=== PATIENT | male | born 1975 | race Caucasian/White ===

== ENCOUNTER 2020-03-14 12:20 | Emergency (ER) | payer BC ==
--- NOTE | 2020-03-14 12:36 | ERPHSYRPT ---
- History of Present Illness Time Seen by Provider: 03/14/20 12:35 Historian: patient Exam Limitations: no limitations Physician History: This is a morbidly obese 45-year-old white male who presents with sudden onset of right flank pain that radiates down into his right scrotum. He is never had anything like this in the past. His pain came on suddenly approximately 1/2- hour prior to arrival. The pain is sharp and severe. He is mildly nauseated no vomiting no diarrhea. Onset was after he ate earlier. Timing/Duration: today Activities at Onset: none Quality: sharpness, stabbing Abdominal Pain Onset Location: flank (Right flank) Pain Radiation: groin (Right groin) Severity of Pain-Max: moderate Severity of Pain-Current: moderate Modifying Factors: Improves With: nothing Associated Symptoms: nausea, testicular pain (Pain radiates from his right flank down into his right groin/scrotum/testicle), No chest pain, No diarrhea, No vomiting Previous symptoms: no prior history Allergies/Adverse Reactions: trimethoprim [From Bactrim] Allergy (Severe, Verified 03/14/20 12:37) states "eyes get blood shot" sulfamethoxazole [From Bactrim] Allergy (Verified 03/14/20 12:37) Home Medications: Benazepril HCl [Lotensin] 20 mg PO DAILY 03/14/20 [History] Cyclobenzaprine HCl 10 mg [Cyclobenzaprine 10 MG] 10 mg PO DAILY 03/14/20 [History] Sertraline HCl 50 mg [Zoloft 50 mg Tablet] 50 mg PO DAILY 03/14/20 [History] Hx Influenza Vaccination/Date Given: No Hx Pneumococcal Vaccination/Date Given: No Travel Risk - International Travel Have you traveled outside of the country in past 3 weeks: No Have you or anyone close to you been diagnosed with or: No Do your reside in a community with a known COVID-19 case?: Yes If Yes where:: [facility] - Coronavirus Screening Has patient experienced Coronavirus symptoms: No - Review of Systems Constitutional: No Symptoms Eyes: No Symptoms Ears, Nose, & Throat: No Symptoms Respiratory: No Symptoms Cardiac: No Symptoms Abdominal/Gastrointestinal: Nausea, No Abdominal Pain, No Vomiting, No Diarrhea , No Appetite Changes Genitourinary Symptoms: Flank Pain (Right flank pain), Testicle Pain (Right flank pain radiates into the right testicle) Musculoskeletal: No Symptoms Skin: No Symptoms Neurological: No Symptoms Psychological: No Symptoms Endocrine: No Symptoms Hematologic/Lymphatic: No Symptoms Immunological/Allergic: No Symptoms All Other Systems: Reviewed and Negative - Past Medical History Pertinent Past Medical History: Yes Neurological History: No Pertinent History ENT History: No Pertinent History Cardiac History: No Pertinent History Respiratory History: No Pertinent History Endocrine Medical History: No Pertinent History Musculoskeletal History: No Pertinent History GI Medical History: No Pertinent History History: No Pertinent History Psycho-Social History: No Pertinent History Male Reproductive Disorders: No Pertinent History Other Medical History: heartburn on occasion and rectal bleeding 6 months ago - Past Surgical History Past Surgical History: Yes (IVS colonoscopy) Neuro Surgical History: No Pertinent History Cardiac: No Pertinent History Respiratory: No Pertinent History Gastrointestinal: No Pertinent History Genitourinary: No Pertinent History Musculoskeletal: No Pertinent History Male Surgical History: No Pertinent History - Social History Smoking Status: Never smoker How long have you smoked: 5 Exposure to second hand smoke: No Drug Use: none - Nursing Vital Signs Nursing Vital Signs: Initial Vital Signs Temperature 97.7 F 03/14/20 12:23 Pulse Rate 87 03/14/20 12:23 Blood Pressure 164/100 03/14/20 12:23 O2 Sat by Pulse Oximetry 98 03/14/20 12:23 Pain Scale Pain Intensity 7 Ordered Tests: Active Orders 24 hr Category Date Time Status IV Insertion STAT Care 03/14/20 12:39 Active ABDOMEN AND PELVIS W/0 CONTRAS [CT] Stat Exams 03/14/20 12:40 Completed AMYLASE Stat Lab 03/14/20 12:50 Completed CBC W DIFF Stat Lab 03/14/20 12:50 Completed CMP Stat Lab 03/14/20 12:50 Completed LIPASE Stat Lab 03/14/20 12:50 Completed Lactic Acid Stat Lab 03/14/20 13:01 Completed UA W/RFX UR CULTURE Stat Lab 03/14/20 12:50 Completed Medication Summary Discontinued Medications Generic Name Dose Route Start Last Admin Trade Name Freq PRN Reason Stop Dose Admin Hydromorphone HCl Confirm 03/14/20 12:38 Hydromorphone 1 Mg/Ml Ampule Administered 03/14/20 12:39 Dose 1 mg .ROUTE .STK-MED ONE Hydromorphone HCl 1 mg 03/14/20 12:39 03/14/20 12:47 Hydromorphone 1 Mg/Ml Ampule IV 03/14/20 12:40 1 mg STAT ONE Administration Hydromorphone HCl 1 mg 03/14/20 13:26 03/14/20 13:30 Hydromorphone 1 Mg/Ml Ampule IV 03/14/20 13:27 1 mg STAT ONE Administration Hydromorphone HCl Confirm 03/14/20 13:29 Hydromorphone 1 Mg/Ml Ampule Administered 03/14/20 13:30 Dose 1 mg .ROUTE .STK-MED ONE Sodium Chloride Confirm 03/14/20 12:38 Sodium Chloride 0.9% 1000 Ml Administered 03/14/20 12:39 Dose 1,000 mls @ ud .ROUTE .STK-MED ONE Sodium Chloride 1,000 mls @ 999 mls/hr 03/14/20 12:39 03/14/20 13:48 Sodium Chloride 0.9% 1000 Ml IV 03/14/20 13:39 Infused .Q1H1M STA Infusion Ketorolac Tromethamine Confirm 03/14/20 12:38 Toradol 30 Mg Injection Administered 03/14/20 12:39 Dose 30 mg .ROUTE .STK-MED ONE Ketorolac Tromethamine 30 mg 03/14/20 12:39 03/14/20 12:46 Toradol 30 Mg Injection IV 03/14/20 12:40 30 mg STAT ONE Administration Ondansetron HCl Confirm 03/14/20 12:38 Zofran 4 Mg/2 Ml Vial Administered 03/14/20 12:39 Dose 4 mg .ROUTE .STK-MED ONE Ondansetron HCl 4 mg 03/14/20 12:39 03/14/20 12:47 Zofran 4 Mg/2 Ml Vial IV 03/14/20 12:40 4 mg STAT ONE Administration Lab/Rad Data: Laboratory Result Diagrams 03/14/20 12:50 03/14/20 12:50 Laboratory Results 03/14/20 03/14/20 03/14/20 Range/Units 13:01 12:50 12:50 WBC (4.0-10.5) K/mm3 RBC (4.1-5.6) M/mm3 Hgb (12.5-18.0) gm/dl Hct (42-50) % MCV (78-100) fl MCH (26-32) pg MCHC (32-36) g/dl RDW (11.5-14.0) % Plt Count (150-450) K/mm3 MPV (7.5-11.0) fl Gran % (36.0-66.0) % Eos # (Auto) (0-0.5) Absolute Lymphs (auto) (1.0-4.6) Absolute Monos (auto) (0.0-1.3) Lymphocytes % (24.0-44.0) % Monocytes % (0.0-12.0) % Eosinophils % (0.00-5.0) % Basophils % (0.0-0.4) % Absolute Granulocytes (1.4-6.9) Basophils # (0-0.4) Sodium 141 (137-145) mmol/L Potassium 3.9 (3.5-5.1) mmol/L Chloride 106 (98-107) mmol/L Carbon Dioxide 26 (22-30) mmol/L Anion Gap 12.5 (5-15) MEQ/L BUN 13 (9-20) mg/dL Creatinine 0.90 (0.66-1.25) mg/dL Estimated GFR > 60.0 ML/MIN Glucose 119 H (74-106) mg/dL Lactic Acid 1.9 (0.4-2.0) Calcium 9.7 (8.4-10.2) mg/dL Total Bilirubin 0.50 (0.2-1.3) mg/dL AST 24 (17-59) U/L ALT 31 (0-50) U/L Alkaline Phosphatase 89 (38-126) U/L Serum Total Protein 8.1 (6.3-8.2) g/dL Albumin 4.5 (3.5-5.0) g/dL Amylase 46 (30-110) U/L Lipase 61 (23-300) U/L Urine Color YELLOW (YELLOW) Urine Appearance SLIGHTLY CLOUDY (CLEAR) Urine pH 5.0 (5-6) Ur Specific [place] 1.023 (1.005-1.025) Urine Protein NEGATIVE (Negative) Urine Ketones NEGATIVE (NEGATIVE) Urine Blood LARGE (0-5) Saul/ul Urine Nitrite NEGATIVE (NEGATIVE) Urine Bilirubin NEGATIVE (NEGATIVE) Urine Urobilinogen 2 (0-1) mg/dL Ur Leukocyte Esterase NEGATIVE (NEGATIVE) Urine WBC (Auto) NONE (0-5) /HPF Urine RBC (Auto) 51-100 (0-2) /HPF U Epithel Cells (Auto) NONE (FEW) /HPF Urine Bacteria (Auto) NONE (NEGATIVE) /HPF Calcium Oxalate Crystal 6-10 (NEGATIVE) /HPF Urine Mucus (Auto) SLIGHT (NEGATIVE) /HPF Urine Culture Reflexed NO (NO) Urine Glucose NEGATIVE (NEGATIVE) mg/dL 03/14/20 Range/Units 12:50 WBC 9.6 (4.0-10.5) K/mm3 RBC 5.37 (4.1-5.6) M/mm3 Hgb 15.7 (12.5-18.0) gm/dl Hct 47.4 (42-50) % MCV 88.3 (78-100) fl MCH 29.2 (26-32) pg MCHC 33.1 (32-36) g/dl RDW 13.9 (11.5-14.0) % Plt Count 217 (150-450) K/mm3 MPV 10.7 (7.5-11.0) fl Gran % 63.8 (36.0-66.0) % Eos # (Auto) 0.16 (0-0.5) Absolute Lymphs (auto) 2.54 (1.0-4.6) Absolute Monos (auto) 0.73 (0.0-1.3) Lymphocytes % 26.6 (24.0-44.0) % Monocytes % 7.6 (0.0-12.0) % Eosinophils % 1.7 (0.00-5.0) % Basophils % 0.3 (0.0-0.4) % Absolute Granulocytes 6.10 (1.4-6.9) Basophils # 0.03 (0-0.4) Sodium (137-145) mmol/L Potassium (3.5-5.1) mmol/L Chloride (98-107) mmol/L Carbon Dioxide (22-30) mmol/L Anion Gap (5-15) MEQ/L BUN (9-20) mg/dL Creatinine (0.66-1.25) mg/dL Estimated GFR ML/MIN Glucose (74-106) mg/dL Lactic Acid (0.4-2.0) Calcium (8.4-10.2) mg/dL Total Bilirubin (0.2-1.3) mg/dL AST (17-59) U/L ALT (0-50) U/L Alkaline Phosphatase (38-126) U/L Serum Total Protein (6.3-8.2) g/dL Albumin (3.5-5.0) g/dL Amylase (30-110) U/L Lipase (23-300) U/L Urine Color (YELLOW) Urine Appearance (CLEAR) Urine pH (5-6) Ur Specific [place] (1.005-1.025) Urine Protein (Negative) Urine Ketones (NEGATIVE) Urine Blood (0-5) Saul/ul Urine Nitrite (NEGATIVE) Urine Bilirubin (NEGATIVE) Urine Urobilinogen (0-1) mg/dL Ur Leukocyte Esterase (NEGATIVE) Urine WBC (Auto) (0-5) /HPF Urine RBC (Auto) (0-2) /HPF U Epithel Cells (Auto) (FEW) /HPF Urine Bacteria (Auto) (NEGATIVE) /HPF Calcium Oxalate Crystal (NEGATIVE) /HPF Urine Mucus (Auto) (NEGATIVE) /HPF Urine Culture Reflexed (NO) Urine Glucose (NEGATIVE) mg/dL - Progress Progress: improved, pain not gone completely, re-examined Progress Note: 03/14/20 14:41 The CAT scan of the abdomen and pelvis reveals a small, 2 to 3 mm, right ureteral stone at this approximately 1 cm proximal to the ureterovesicular junction. There is mild hydronephrosis but no dilatation of the right ureter. Counseled pt/family regarding: lab results, diagnosis, need for follow-up, rad results - Departure Departure Disposition: Home Clinical Impression: Right ureteral calculus Condition: Stable Critical Care Time: No Referrals: DOLLY RENNER [Primary Care Provider] - Additional Instructions: Plenty of fluids. Take ibuprofen 600 mg orally 3 times a day with food for the next 4 days. Return to the emergency department for worsening symptoms. Follow -up with your primary care physician/urologist for persistent but not worsening symptoms. Prescriptions: Hydrocodone/APAP 5/325 [[place] 5/325 mg] 1 each PO Q8H PRN PRN #10 tablet MDD 3 PRN Reason: Pain
[2020-03-14] MEDS ORDERED: Zofran 4 MG/2 ML VIAL ONE (12:38)
[2020-03-14] MEDS ORDERED: Sodium Chloride 0.9% 1000 ML 1,000 ML ONE (12:38)
[2020-03-14] MEDS ORDERED: Hydromorphone 1 mg/ml Ampule ONE ×2 (12:38→13:29)
[2020-03-14] MEDS ORDERED: TORAdol 30 mg Injection ONE (12:38)
[2020-03-14] MEDS ORDERED: Sodium Chloride 0.9% 1000 ML 1,000 ML IV STA (12:39)
[2020-03-14] MEDS ORDERED: TORAdol 30 mg Injection IV ONE (12:39)
[2020-03-14] MEDS ORDERED: Zofran 4 MG/2 ML VIAL IV ONE (12:39)
[2020-03-14] MEDS ORDERED: Hydromorphone 1 mg/ml Ampule IV ONE ×2 (12:39→13:26)
[2020-03-14 13:11] LABS: BASOPHIL % 0.3 % (0.0-0.4); Basophil (Absolute #) 0.03 (0-0.4); Eosinophil % 1.7 % (0.00-5.0); Eosinophil (Absolute #) 0.16 (0-0.5); Hematocrit 47.4 % (42-50); Hemoglobin 15.7 gm/dl (12.5-18.0); Lymphocyte (Absolute #) 2.54 (1.0-4.6); Lymphocytes % 26.6 % (24.0-44.0); Mean Cell Volume 88.3 fl (78-100); Mean Corpuscular Hemoglobin 29.2 pg (26-32); Mean Corpuscular Hgb Concent. 33.1 g/dl (32-36); Mean Platelet Volume 10.7 fl (7.5-11.0); Monocyte (Absolute #) 0.73 (0.0-1.3); Monocytes % 7.6 % (0.0-12.0); Neutrophil % 63.8 % (36.0-66.0); Platelet Count 217 K/mm3 (150-450); Red Blood Count 5.37 M/mm3 (4.1-5.6); Red Cell Distribution Width 13.9 % (11.5-14.0); White Blood Count 9.6 K/mm3 (4.0-10.5)
[2020-03-14 13:15] LABS: Appearance SLIGHTLY CLOUDY (CLEAR); Bilirubin NEGATIVE (NEGATIVE); Blood LARGE Ery/ul (0-5); Glucose NEGATIVE (NEGATIVE); Ketones NEGATIVE (NEGATIVE); Leukocyte Esterase NEGATIVE (NEGATIVE); Mucus SLIGHT /HPF (NEGATIVE); Nitrite NEGATIVE (NEGATIVE); Protein,Urine Dip NEGATIVE (Negative); RBC 51-100 /HPF (0-2); Specific Gravity 1.023 (1.005-1.025); Urobilinogen 2 mg/dL (0-1)
[2020-03-14 13:23] VITALS: PULSE 88; O2SAT 97
[2020-03-14 13:31] LABS: ALBUMIN 4.5 g/dL (3.5-5.0); ALKALINE PHOSPHATASE 89 U/L (38-126); AMYLASE 46 U/L (30-110); ANION GAP 12.5 MEQ/L (5-15); BLOOD UREA NITROGEN 13 mg/dL (9-20); CHLORIDE 106 mmol/L (98-107); Calcium 9.7 mg/dL (8.4-10.2); Carbon Dioxide 26 mmol/L (22-30); Glucose 119 mg/dL (74-106); LIPASE 61 U/L (23-300); Potassium 3.9 mmol/L (3.5-5.1); SGOT/AST 24 U/L (17-59); SGPT/ALT 31 U/L (0-50); SODIUM 141 mmol/L (137-145); Total Protein 8.1 g/dL (6.3-8.2)
--- NOTE | 2020-03-14 14:27 | XRAY ---
Exam: CT of the abdomen and pelvis without IV contrast from 03/14/2020. CTDI: 38.05 mGy Comparison: CT of the abdomen without IV contrast and CT of the abdomen and pelvis with IV contrast, both from 12/03/2011. Indication: Right-sided flank pain and lower right abdominal pain in 45-year-old male. Technique: Non-IV contrast axial images were obtained through the abdomen and pelvis. Reconstructed coronal and sagittal images were created and reviewed. Findings: The lung bases appear clear. The heart size is normal. Within the right kidney, I note a 4.3 mm in diameter nonobstructing stone within the upper pole which appears new from 12/03/2011. The right kidney measures 14.8 cm in length on the sagittal image and demonstrates some mild pyelocaliectasis. The left kidney measures 13.9 cm in length. Mild right-sided hydroureter is noted down to the level of a distal right ureteral stone measuring 2-3 mm in diameter about 1 centimeter proximal to the ureterovesical junction. See axial image #110. This is probably causing the patient's symptomatology. The left ureter appears unremarkable and reveals no ureterolith. The urinary bladder is only minimally distended. No gross urinary bladder stone is seen. The liver, spleen, pancreas, and adrenal glands appear essentially unremarkable. The gallbladder is partially distended and reveals no dense calcifications within it. No intrahepatic biliary duct distention is seen. The abdominal aorta reveals mild atherosclerotic vascular calcification within its distal aspect. No abdominal aortic aneurysm is seen. No abnormal retroperitoneal lymphadenopathy is seen. The abdomen is protuberant and reveals much intraperitoneal fat secondary to obesity. There is no free intraperitoneal air. Anterior abdominal wall appears intact. The bowel is not distended. Some scattered stool is seen within the colon. The appendix appears unremarkable. Mild diverticulosis of the sigmoid colon without evidence of acute diverticulitis is seen. I see no free intraperitoneal fluid. The seminal vesicles and prostate gland appear unremarkable. No other pelvic mass or enlarged pelvic lymph nodes are seen. A couple small calcified phleboliths are seen within the lower left hemipelvis representing no change from 12/03/2011. Some nonspecific postinflammatory lymph nodes are seen within each groin. The skeleton reveals no acute fracture or aggressive bone lesion. Mild bilateral facet joint arthropathy is seen at L5-S1. Some vertebral endplate spurring is seen within the visualized thoracolumbar spine, more prominent within the lower thoracic spine. Small Schmorl's nodes and moderate degenerative changes are seen within several lower thoracic interspaces. Impression: 1. There is a small 2-3 mm distal right ureteral stone located about 1 cm proximal to the ureterovesical junction causing mild right-sided hydroureteronephrosis. This is new from 12/03/2011. 2. Nonobstructing 4.3 mm stone within the upper pole the right kidney, also new. 3. No other acute intra-abdominal or pelvic process is seen. I note mild sigmoid colon diverticulosis without evidence of diverticulitis, obesity, and some degenerative spondylosis, more prominent within the lower thoracic spine.
[2020-03-14 14:47] VITALS: BP 149/105
== END 2020-03-14 14:54 | disposition home or self-care (01) ==
LOC: ED 12:20
DX: N20.1 Calculus of ureter (principal); N13.30 Unspecified hydronephrosis
CPT/HCPCS: 36000; 36415; 74176; 80053; 81001; 82150; 83605; 83690; 85025; 96360; 96374; 96375; 96376; 99284; J1170; J1885; J2405

== ENCOUNTER 2020-03-30 12:46 | Emergency (ER) | payer BC ==
[2020-03-30] MEDS ORDERED: Hydromorphone 1 mg/ml Ampule IV ONE (12:54)
[2020-03-30] MEDS ORDERED: TORAdol 30 mg Injection IV ONE (12:54)
[2020-03-30] MEDS ORDERED: Sodium Chloride 0.9% 1000 ML 1,000 ML IV STA (12:54)
[2020-03-30] MEDS ORDERED: Zofran 4 MG/2 ML VIAL IV ONE (12:54)
--- NOTE | 2020-03-30 13:10 | ERPHSYRPT ---
- History of Present Illness Time Seen by Provider: 03/30/20 12:50 Historian: patient Exam Limitations: no limitations Patient Subjective Stated Complaint: pt here for right sided abd pain that radiates to flank area since yesterday, he was seen 3 weeks ago and had 2 kidney stones Triage Nursing Assessment: pt alert, waked in, resp easy, skin w/d/p. abd soft, resp easy, moves all ext well Physician History: Is a 45-year-old morbidly obese white male with history of hypertension and known single right kidney stone measuring 4 mm who presents with sudden onset of right flank pain with radiation of pain to his right scrotum. It is described as sharp and severe. He said no nausea vomiting or diarrhea. Patient had similar symptoms on 03/14/2020 a CAT scan revealed right ureterolithiasis. He has passed that stone. However there was a single stone as described above present within the right kidney. This pain is similar and there was sudden onset of pain yesterday. It never really went away but got worse today and therefore he is here for further management. Patient used the prescribed [place] pain medicine which was not helping. Abdominal Pain Onset Location: flank (Right) Pain Radiation: groin (Right) Severity of Pain-Max: moderate Severity of Pain-Current: moderate Modifying Factors: Improves With: nothing Associated Symptoms: denies symptoms Previous symptoms: same symptoms as today, recently seen, recently treated Allergies/Adverse Reactions: trimethoprim [From Bactrim] Allergy (Severe, Verified 03/30/20 12:57) states "eyes get blood shot" sulfamethoxazole [From Bactrim] Allergy (Verified 03/30/20 12:57) Home Medications: Benazepril HCl [Lotensin] 20 mg PO DAILY 03/14/20 [History] Cyclobenzaprine HCl 10 mg [Cyclobenzaprine 10 MG] 10 mg PO DAILY 03/14/20 [History] Sertraline HCl 50 mg [Zoloft 50 mg Tablet] 50 mg PO DAILY 03/14/20 [History] Hx Tetanus, Diphtheria Vaccination/Date Given: No Hx Influenza Vaccination/Date Given: No Hx Pneumococcal Vaccination/Date Given: No Immunizations Up to Date: Yes Travel Risk - International Travel Have you traveled outside of the country in past 3 weeks: No Have you or anyone close to you been diagnosed with or: No Do your reside in a community with a known COVID-19 case?: Yes If Yes where:: [facility] - Coronavirus Screening Has patient experienced Coronavirus symptoms: No - Review of Systems Constitutional: No Symptoms Eyes: No Symptoms Ears, Nose, & Throat: No Symptoms Respiratory: No Symptoms Cardiac: No Symptoms Abdominal/Gastrointestinal: No Symptoms Genitourinary Symptoms: Flank Pain (Right), Other (Into the right groin and scrotum) Musculoskeletal: No Symptoms Skin: No Symptoms Neurological: No Symptoms Psychological: No Symptoms Endocrine: No Symptoms Hematologic/Lymphatic: No Symptoms Immunological/Allergic: No Symptoms All Other Systems: Reviewed and Negative - Past Medical History Pertinent Past Medical History: Yes Neurological History: No Pertinent History ENT History: No Pertinent History Cardiac History: No Pertinent History Respiratory History: No Pertinent History Endocrine Medical History: No Pertinent History Musculoskeletal History: No Pertinent History GI Medical History: No Pertinent History History: No Pertinent History Psycho-Social History: No Pertinent History Male Reproductive Disorders: No Pertinent History Other Medical History: heartburn on occasion and rectal bleeding 6 months ago - Past Surgical History Past Surgical History: Yes (IVS colonoscopy) Neuro Surgical History: No Pertinent History Cardiac: No Pertinent History Respiratory: No Pertinent History Gastrointestinal: No Pertinent History Genitourinary: No Pertinent History Musculoskeletal: No Pertinent History Male Surgical History: No Pertinent History - Social History Smoking Status: Former smoker How long have you smoked: 5 Exposure to second hand smoke: No Drug Use: none Patient Lives Alone: No - Nursing Vital Signs Nursing Vital Signs: Initial Vital Signs Temperature 97.7 F 03/30/20 12:48 Pulse Rate 93 H 03/30/20 12:48 Respiratory Rate 18 03/30/20 12:48 Blood Pressure 144/85 03/30/20 12:48 O2 Sat by Pulse Oximetry 96 03/30/20 12:48 Pain Scale Pain Intensity 7 - Physical Exam General Appearance: moderate distress, alert, anxiety, obese Eye Exam: PERRL/EOMI, eyes nml inspection Ears, Nose, Throat Exam: normal ENT inspection, moist mucous membranes Neck Exam: normal inspection, non-tender, supple, full range of motion Respiratory Exam: normal breath sounds, lungs clear, airway intact, No chest tenderness, No respiratory distress Cardiovascular Exam: regular rate/rhythm, normal heart sounds, normal peripheral pulses Gastrointestinal/Abdomen Exam: soft, normal bowel sounds, No tenderness Rectal Exam: not done Back Exam: normal inspection, normal range of motion, CVA tenderness, No vertebral tenderness (8) Extremity Exam: normal inspection, normal range of motion, pelvis stable Neurologic Exam: alert, oriented x 3, cooperative, revenue stamp cutter II-XII nml as tested, normal mood/affect, nml cerebellar function, nml station & gait Skin Exam: normal color, warm, dry Lymphatic Exam: No adenopathy SpO2 Interpretation: normal SpO2: 96 O2 Delivery: Room Air Ordered Tests: Active Orders 24 hr Category Date Time Status IV Insertion STAT Care 03/30/20 12:54 Active ABDOMEN AND PELVIS W/0 CONTRAS [CT] Stat Exams 03/30/20 12:54 Taken AMYLASE Stat Lab 03/30/20 12:54 Completed CBC W DIFF Stat Lab 03/30/20 12:54 Completed CMP Stat Lab 03/30/20 12:54 Completed LIPASE Stat Lab 03/30/20 12:54 Completed Lactic Acid Stat Lab 03/30/20 13:10 Completed UA W/RFX UR CULTURE Stat Lab 03/30/20 13:25 Ordered Medication Summary Discontinued Medications Generic Name Dose Route Start Last Admin Trade Name Freq PRN Reason Stop Dose Admin Hydromorphone HCl 1 mg 03/30/20 12:54 03/30/20 13:17 Hydromorphone 1 Mg/Ml Ampule IV 03/30/20 12:55 1 mg STAT ONE Administration Hydromorphone HCl Confirm 03/30/20 13:12 Hydromorphone 1 Mg/Ml Ampule Administered 03/30/20 13:13 Dose 1 mg .ROUTE .STK-MED ONE Sodium Chloride 1,000 mls @ 999 mls/hr 03/30/20 12:54 03/30/20 13:17 Sodium Chloride 0.9% 1000 Ml IV 03/30/20 13:54 999 mls/hr .Q1H1M STA Administration Sodium Chloride Confirm 03/30/20 13:12 Sodium Chloride 0.9% 1000 Ml Administered 03/30/20 13:13 Dose 1,000 mls @ ud .ROUTE .STK-MED ONE Ketorolac Tromethamine 30 mg 03/30/20 12:54 03/30/20 13:16 Toradol 30 Mg Injection IV 03/30/20 12:55 30 mg STAT ONE Administration Ketorolac Tromethamine Confirm 03/30/20 13:12 Toradol 30 Mg Injection Administered 03/30/20 13:13 Dose 30 mg .ROUTE .STK-MED ONE Ondansetron HCl 4 mg 03/30/20 12:54 03/30/20 13:16 Zofran 4 Mg/2 Ml Vial IV 03/30/20 12:55 4 mg STAT ONE Administration Ondansetron HCl Confirm 03/30/20 13:12 Zofran 4 Mg/2 Ml Vial Administered 03/30/20 13:13 Dose 4 mg .ROUTE .STK-MED ONE Lab/Rad Data: Laboratory Result Diagrams 03/30/20 12:54 03/30/20 12:54 Laboratory Results 03/30/20 03/30/20 03/30/20 Range/Units 13:10 12:54 12:54 WBC 12.3 H (4.0-10.5) K/mm3 RBC 5.20 (4.1-5.6) M/mm3 Hgb 15.6 (12.5-18.0) gm/dl Hct 46.0 (42-50) % MCV 88.5 (78-100) fl MCH 30.0 (26-32) pg MCHC 33.9 (32-36) g/dl RDW 14.1 H (11.5-14.0) % Plt Count 203 (150-450) K/mm3 MPV 10.8 (7.5-11.0) fl Gran % 78.7 H (36.0-66.0) % Eos # (Auto) 0.11 (0-0.5) Absolute Lymphs (auto) 1.34 (1.0-4.6) Absolute Monos (auto) 1.15 (0.0-1.3) Lymphocytes % 10.9 L (24.0-44.0) % Monocytes % 9.3 (0.0-12.0) % Eosinophils % 0.9 (0.00-5.0) % Basophils % 0.2 (0.0-0.4) % Absolute Granulocytes 9.71 H (1.4-6.9) Basophils # 0.03 (0-0.4) Sodium 137 (137-145) mmol/L Potassium 4.6 (3.5-5.1) mmol/L Chloride 101 (98-107) mmol/L Carbon Dioxide 26 (22-30) mmol/L Anion Gap 14.5 (5-15) MEQ/L BUN 19 (9-20) mg/dL Creatinine 1.19 (0.66-1.25) mg/dL Estimated GFR > 60.0 ML/MIN Glucose 127 H (74-106) mg/dL Lactic Acid 1.0 (0.4-2.0) Calcium 10.1 (8.4-10.2) mg/dL Total Bilirubin 1.00 (0.2-1.3) mg/dL AST 33 (17-59) U/L ALT 33 (0-50) U/L Alkaline Phosphatase 80 (38-126) U/L Serum Total Protein 8.3 H (6.3-8.2) g/dL Albumin 4.7 (3.5-5.0) g/dL Amylase 54 (30-110) U/L Lipase 50 (23-300) U/L - Progress Progress: improved, pain not gone completely, re-examined Progress Note: 03/30/20 14:25 CAT scan of the abdomen and pelvis reveals a 4 mm distal right ureteral obstructing stone. There is mild right hydronephrosis associated with dilatation of the mid and distal ureter. Counseled pt/family regarding: lab results, diagnosis, need for follow-up, rad results - Departure Departure Disposition: Home Clinical Impression: Right ureteral calculus Condition: Stable Critical Care Time: No Referrals: DOLLY RENNER [Primary Care Provider] - Additional Instructions: Drink plenty of fluids. Add ibuprofen 600 mg orally 3 times a day with food for 5 days. Follow-up with your primary care physician or urologist for persistent symptoms. Return to the emergency department if symptoms worsen. Prescriptions: Hydrocodone/APAP 5-325 Tab^^^ [[place] 5-325 Tablet^^^] 1 tab PO Q8H PRN PRN #8 tablet MDD 3 PRN Reason: Pain
[2020-03-30] MEDS ORDERED: Hydromorphone 1 mg/ml Ampule ONE (13:12)
[2020-03-30] MEDS ORDERED: Sodium Chloride 0.9% 1000 ML 1,000 ML ONE (13:12)
[2020-03-30] MEDS ORDERED: TORAdol 30 mg Injection ONE (13:12)
[2020-03-30] MEDS ORDERED: Zofran 4 MG/2 ML VIAL ONE (13:12)
[2020-03-30 13:25] LABS: Absolute Neutrophil Ct (ANC) 9.71 (1.4-6.9); BASOPHIL % 0.2 % (0.0-0.4); Basophil (Absolute #) 0.03 (0-0.4); Eosinophil % 0.9 % (0.00-5.0); Eosinophil (Absolute #) 0.11 (0-0.5); Hemoglobin 15.6 gm/dl (12.5-18.0); Lymphocyte (Absolute #) 1.34 (1.0-4.6); Lymphocytes % 10.9 % (24.0-44.0); Mean Cell Volume 88.5 fl (78-100); Mean Corpuscular Hgb Concent. 33.9 g/dl (32-36); Mean Platelet Volume 10.8 fl (7.5-11.0); Monocyte (Absolute #) 1.15 (0.0-1.3); Monocytes % 9.3 % (0.0-12.0); Neutrophil % 78.7 % (36.0-66.0); Platelet Count 203 K/mm3 (150-450); Red Cell Distribution Width 14.1 % (11.5-14.0); White Blood Count 12.3 K/mm3 (4.0-10.5)
[2020-03-30 13:44] LABS: ALBUMIN 4.7 g/dL (3.5-5.0); ALKALINE PHOSPHATASE 80 U/L (38-126); AMYLASE 54 U/L (30-110); ANION GAP 14.5 MEQ/L (5-15); BLOOD UREA NITROGEN 19 mg/dL (9-20); CHLORIDE 101 mmol/L (98-107); Calcium 10.1 mg/dL (8.4-10.2); Carbon Dioxide 26 mmol/L (22-30); Creatinine 1 1.19 mg/dL (0.66-1.25); Glucose 127 mg/dL (74-106); LIPASE 50 U/L (23-300); Potassium 4.6 mmol/L (3.5-5.1); SGOT/AST 33 U/L (17-59); SGPT/ALT 33 U/L (0-50); SODIUM 137 mmol/L (137-145); Total Protein 8.3 g/dL (6.3-8.2)
[2020-03-30 14:31] LABS: Appearance CLEAR (CLEAR); Bilirubin NEGATIVE (NEGATIVE); Blood NEGATIVE Ery/ul (0-5); Glucose NEGATIVE (NEGATIVE); Ketones NEGATIVE (NEGATIVE); Leukocyte Esterase NEGATIVE (NEGATIVE); Mucus SLIGHT /HPF (NEGATIVE); Nitrite NEGATIVE (NEGATIVE); Protein,Urine Dip NEGATIVE (Negative); Specific Gravity 1.013 (1.005-1.025); Urobilinogen NEGATIVE mg/dL (0-1)
[2020-03-30 14:53] VITALS: BP 110/86; PULSE 78; O2SAT 97
--- NOTE | 2020-03-30 20:27 | XRAY ---
Indication: Right flank pain. Multiple contiguous axial images obtained through the abdomen and pelvis without contrast as ordered. Comparison: March 14, 2020. Lung bases remaining clear. Heart is not enlarged. Noncontrasted stomach and bowel loops appear nonobstructed. Normal appendix. Stable minimal sigmoid diverticulosis. No free fluid/air. Previous second right renal 3-4 mm calculus has passed and seen 1 cm proximal to the UVJ. Mild right ureter prominence and mild right-sided hydronephrosis consistent with partial obstructive uropathy. Stable fatty liver. Remaining liver, gallbladder, pancreas, spleen, adrenal glands, kidneys, ureters, and bladder appear unremarkable for noncontrast exam. There remains minimal aortic calcifications without AAA. Impression: 1. Previous second right renal micro-calculus has passed and seen in the distal right ureter producing partial obstruction. 2. Stable sigmoid diverticulosis and fatty liver. 3. Remaining CT abdomen/pelvis without contrast exam is negative. Comment: Preliminary interpretation was made by [facility]. No critical discrepancy.
== END 2020-03-30 14:54 | disposition home or self-care (01) ==
LOC: ED 12:46
DX: N20.1 Calculus of ureter (principal); Z79.899 Other long term (current) drug therapy
CPT/HCPCS: 36000; 36415; 74176; 80053; 81001; 82150; 83605; 83690; 85025; 96360; 96374; 96375; 99284; J1170; J1885; J2405